=== PATIENT | male | born 1935 | race Two or more races ===

== ENCOUNTER 2024-01-19 04:45 | Emergency (ER) | payer MEDICARE, MEDICAID ==
[~2024-01-19] VITALS: Ht 160 cm; Wt 53.0 kg
[2024-01-19 04:53] VITALS: TEMP 97.3
[2024-01-19 05:09] VITALS: BP 129/82; PULSE 75; RESP 19
[2024-01-19] MEDS: MORPHINE SULFATE 2 MG/ML SYRINGE IM ONE (05:28)
[2024-01-19] MEDS: LIDOCAINE 5% TRANSDERMAL PATCH TD ONE (05:35)
[2024-01-19] MEDS ORDERED: TRAM50TA5 PO (06:23)
[2024-01-19] MEDS ORDERED: LIDO700A15 TP (06:23)
== END 2024-01-19 06:52 | disposition home or self-care (01) ==
LOC: EMS 04:45
DX: M54.50 Low back pain, unspecified (principal)
CPT/HCPCS: 99283; 72100; 96372; J2270